=== PATIENT | male | born 1990 | race African-American/Black ===

== ENCOUNTER 2020-11-02 03:49 | Emergency (ER) | payer OTHER ==
[~2020-11-02] VITALS: Ht 175.3 cm; Wt 100.0 kg
[2020-11-02 03:53] VITALS: BP 160/113
[2020-11-02] MEDS ORDERED: ipratropium/albuterol 3ml nebule NEB ONE (03:55)
[2020-11-02] MEDS ORDERED: predniSONE 20 mg tablet PO ONE (03:55)
[2020-11-02] MEDS ORDERED: ALBU8.5H8 INH (04:14)
[2020-11-02] MEDS ORDERED: PRED20TA PO (04:14)
== END 2020-11-02 04:50 | disposition home or self-care (01) ==
LOC: ER 03:51
DX: J45.901 Unspecified asthma with (acute) exacerbation (principal); R06.02 Shortness of breath
CPT/HCPCS: 94640; 99283; J7512; 94760